=== PATIENT | female | born 1985 | race African-American/Black ===

== ENCOUNTER 2016-12-19 13:15 | Inpatient (IN) | payer MEDICAID, OTHER ==
[~2016-12-19] VITALS: Ht 160 cm; Wt 75.3 kg
[2016-12-19 13:46] LABS: BASOPHILS # (AUTO) 0.04 K/uL (0.00-0.20); BASOPHILS % (AUTO) 0.5 % (0.0-2.0); EOSINOPHILS # (AUTO) 0.03 K/uL (0.00-0.70); EOSINOPHILS % (AUTO) 0.35 % (1.0-6.0); HEMATOCRIT 34.4 % (36-46); HEMOGLOBIN 10.3 g/dL (12.0-16.0); LYMPHOCYTES # (AUTO) 1.3 K/uL (1.0-4.8); LYMPHOCYTES % (AUTO) 17.1 % (22.0-44.0); MEAN CORPUSCULAR HEMOGLOBIN 21.1 pg (26.0-34.0); MEAN CORPUSCULAR VOLUME 70 fL (80-100); MONOCYTES # (AUTO) 0.8 K/uL (0.1-1.0); NEUTROPHILS # (AUTO) 5.6 K/uL (1.8-7.7); NEUTROPHILS % (AUTO) 72.1 % (40.0-70.0); PLATELET COUNT (AUTO) 388 K/uL (150-450); RED CELL DISTRIBUTION WIDTH 24.9 % (11.5-14.5); WHITE BLOOD COUNT (AUTO) 7.8 K/uL (4.5-11.0)
[2016-12-19 13:55] LABS: ANION GAP 10 mmol/L (8-16); CALCIUM, TOTAL 9.5 mg/dL (8.8-10.5); CARBON DIOXIDE 27 mmol/L (22-29); CHLORIDE 103 mmol/L (98-107); CREATININE 0.74 mg/dL (0.60-1.30); GLOMERULAR FILTR. RATE CALC > 60 mL/min (>60); POTASSIUM 3.8 mmol/L (3.5-5.1); SODIUM SERUM 140 mmol/L (136-145); UREA NITROGEN, BLOOD 8 mg/dL (7-18)
[2016-12-19] MEDS ORDERED: DiphenhydrAMINE HCL 50 MG/ML VIAL ONE (14:25)
[2016-12-19] MEDS ORDERED: LORazepam 2 MG/ML VIAL ONE (14:25)
[2016-12-19] MEDS ORDERED: HALOPERIDOL LACTATE 5 MG/ML VIAL ONE (14:26)
[2016-12-19 14:35] LABS: ALANINE AMINOTRANSFERASE 40 U/L (12-78); ALBUMIN 4.2 g/dL (3.4-5.0); ASPARTATE AMINOTRANSFERASE 28 U/L (15-37); BILIRUBIN,TOTAL 0.5 mg/dL (0.1-1.0)
[2016-12-19 14:38] LABS: RBC MORPHOLOGY COMMENT ABNORMAL RBC MORPH
[2016-12-19] MEDS ORDERED: HALOPERIDOL 5 MG TABLET PO PRN (15:00)
[2016-12-19 15:55] LABS: ADD UA MICROSCOPIC YES; APPEARANCE,URINE CLOUDY (CLEAR); GLUCOSE, URINE (UA) NEGATIVE (NEGATIVE); KETONES,URINE 40 mg/dL (NEGATIVE); LEUKOCYTE ESTERASE ,URINE TRACE (NEGATIVE); OCCULT BLOOD,URINE NEGATIVE (NEGATIVE); PROTEIN,URINE TRACE (NEGATIVE)
[2016-12-19 15:57] LABS: RBC,URINE 0-2 /HPF (0-2)
[2016-12-19 15:58] LABS: SQUAMOUS EPITHELIAL CELL,UR Few /LPF (None Seen)
[2016-12-19 15:59] LABS: CHOL/HDL RATIO 3.5 (3.9-5.7)
[2016-12-19 19:31] VITALS: BP 137/86
[2016-12-19] MEDS ORDERED: PNEUMOCOCCAL VACCINE POLYVALENT 0.5 ML VIAL [PPSV23] IM ONE (20:00)
[2016-12-20 08:19] VITALS: BP 130/65
[2016-12-20] MEDS: RisperiDONE 2 MG TABLET PO SCH ×2 (08:31→17:00)
[2016-12-20] MEDS ORDERED: HALOPERIDOL LACTATE 5 MG/ML VIAL IM ONE (09:00)
[2016-12-20] MEDS ORDERED: LORazepam 2 MG/ML VIAL IM ONE (09:00)
[2016-12-20] MEDS ORDERED: DiphenhydrAMINE HCL 50 MG/ML VIAL IM ONE (09:00)
[2016-12-20 09:45] VITALS: BP 124/72
[2016-12-20 16:15] VITALS: BP 126/74
[2016-12-20] MEDS ORDERED: IBUPROFEN 400 MG TABLET PO PRN (21:45)
[2016-12-20] MEDS ORDERED: ACETAMINOPHEN 325 MG TABLET PO PRN (21:45)
[2016-12-21] MEDS: RisperiDONE 2 MG TABLET PO SCH ×2 (08:58→16:31)
[2016-12-21] MEDS ORDERED: LORazepam 2 MG/ML VIAL ONE (12:31)
[2016-12-21] MEDS ORDERED: HALOPERIDOL LACTATE 5 MG/ML VIAL ONE (12:31)
[2016-12-21] MEDS ORDERED: DiphenhydrAMINE HCL 50 MG/ML VIAL ONE (12:31)
[2016-12-21] MEDS ORDERED: DiphenhydrAMINE HCL 50 MG/ML VIAL IM ONE (12:45)
[2016-12-21] MEDS ORDERED: LORazepam 2 MG/ML VIAL IM ONE (12:45)
[2016-12-21] MEDS ORDERED: HALOPERIDOL LACTATE 5 MG/ML VIAL IM ONE (12:45)
[2016-12-21 16:02] VITALS: BP 123/77
[2016-12-21] MEDS ORDERED: *CLINICAL-RX DOSING [ENTER DRUG IN COMMENTS] CLINICAL ONE (17:30)
[2016-12-21] MEDS: ZOLPIDEM TARTRATE 10 MG TABLET PO PRN (21:05)
[2016-12-22] MEDS: LORazepam 2 MG TABLET PO PRN (08:01)
[2016-12-22] MEDS: DIVALPROEX SODIUM 500 MG DR TABLET PO SCH ×3 (08:01→17:15)
[2016-12-22] MEDS: RisperiDONE 3 MG TABLET PO SCH ×3 (08:01→17:15)
[2016-12-22] MEDS: LITHIUM CARBONATE 300 MG CAPSULE PO SCH ×3 (08:01→17:15)
[2016-12-22 08:39] VITALS: BP 128/83
[2016-12-22] MEDS ORDERED: DiphenhydrAMINE HCL 50 MG/ML VIAL IM ONE (09:15)
[2016-12-22] MEDS ORDERED: HALOPERIDOL LACTATE 5 MG/ML VIAL IM ONE (09:15)
[2016-12-22] MEDS ORDERED: LORazepam 2 MG/ML VIAL IM ONE (09:15)
[2016-12-22] MEDS ORDERED: IVERMECTIN 3 MG TABLET PO ONE (12:00)
[2016-12-22 16:07] VITALS: BP 117/67
[2016-12-22] MEDS: ZOLPIDEM TARTRATE 10 MG TABLET PO PRN (21:02)
[2016-12-23 00:25] VITALS: BP 112/66
[2016-12-23] MEDS: LORazepam 2 MG TABLET PO PRN (00:26)
[2016-12-23] MEDS: RisperiDONE 3 MG TABLET PO SCH ×2 (08:02→16:32)
[2016-12-23] MEDS: DIVALPROEX SODIUM 500 MG DR TABLET PO SCH ×2 (08:02→16:32)
[2016-12-23] MEDS: LITHIUM CARBONATE 300 MG CAPSULE PO SCH ×2 (08:02→16:32)
[2016-12-23 08:19] VITALS: BP 115/70
[2016-12-23 16:31] VITALS: BP 124/68
[2016-12-23] MEDS: ZOLPIDEM TARTRATE 10 MG TABLET PO PRN (20:50)
[2016-12-24 07:03] VITALS: BP 122/62
[2016-12-24 08:32] VITALS: BP 125/74
[2016-12-24] MEDS: LITHIUM CARBONATE 300 MG CAPSULE PO SCH ×2 (08:53→16:37)
[2016-12-24] MEDS: RisperiDONE 3 MG TABLET PO SCH ×2 (08:53→16:37)
[2016-12-24] MEDS: DIVALPROEX SODIUM 500 MG DR TABLET PO SCH ×2 (08:53→16:37)
[2016-12-24] MEDS: LORazepam 2 MG TABLET PO PRN ×2 (08:54→20:17)
[2016-12-24 16:00] VITALS: BP 118/69
[2016-12-25 06:50] VITALS: BP 119/78
[2016-12-25 08:25] VITALS: BP 114/62
[2016-12-25] MEDS: LITHIUM CARBONATE 300 MG CAPSULE PO SCH (08:46)
[2016-12-25] MEDS: DIVALPROEX SODIUM 500 MG DR TABLET PO SCH (08:46)
[2016-12-25] MEDS: RisperiDONE 3 MG TABLET PO SCH (08:47)
[2016-12-25] MEDS ORDERED: LITH300C3 PO (12:12)
[2016-12-25] MEDS ORDERED: RISP3 PO (12:12)
[2016-12-25] MEDS ORDERED: DIVA500T35 PO (12:12)
== END 2016-12-25 13:30 | disposition home or self-care (01) | DRG 750 ==
LOC: EEVIPCON 13:17 → EMS 13:17 → B3A 16:16
PROVIDERS: ADMIT Psychiatry & Neurology Psychiatry; ATTEND Psychiatry & Neurology Psychiatry
DX: F25.9 Schizoaffective disorder, unspecified (principal); Z78.1 Physical restraint status; Z91.14 Patient's other noncompliance with medication regimen; E78.5 Hyperlipidemia, unspecified; D64.9 Anemia, unspecified; F19.10 Other psychoactive substance abuse, uncomplicated; Z86.73 Personal history of transient ischemic attack (TIA), and cerebral infarction without residual deficits
CPT/HCPCS: 90471; 99285; G0480; J1200; J1630; J2060

== ENCOUNTER 2016-12-27 19:00 | Inpatient (IN) | payer MEDICAID, OTHER ==
[~2016-12-27] VITALS: Ht 160 cm; Wt 80.1 kg
[~2016-12-27 19:00] MED LIST: DIVA500T35 PO; LITH300C3 PO; RISP3 PO
[2016-12-27] MEDS ORDERED: DiphenhydrAMINE HCL 50 MG/ML VIAL IM ONE (19:30)
[2016-12-27] MEDS ORDERED: LORazepam 2 MG/ML VIAL IM ONE (19:30)
[2016-12-27] MEDS ORDERED: HALOPERIDOL LACTATE 5 MG/ML VIAL IM ONE (19:30)
[2016-12-27 19:32] LABS: GLUCOSE,POINT OF CARE 104 MG/DL (70-110)
[2016-12-27 20:17] LABS: BASOPHILS % (AUTO) 0.2 % (0.0-2.0); EOSINOPHILS % (AUTO) 0.6 % (1.0-6.0); HEMATOCRIT 34.1 % (36-46); HEMOGLOBIN 10.3 g/dL (12.0-16.0); LYMPHOCYTES # (AUTO) 1.8 K/uL (1.0-4.8); LYMPHOCYTES % (AUTO) 22.4 % (22.0-44.0); MEAN CORPUSCULAR HEMOGLOBIN 21.7 pg (26.0-34.0); MEAN CORPUSCULAR HGB CONC 30.2 G/dL (31.0-37.0); MEAN CORPUSCULAR VOLUME 72 fL (80-100); MONOCYTES # (AUTO) 0.7 K/uL (0.1-1.0); MONOCYTES % (AUTO) 8.9 % (2.0-9.0); NEUTROPHILS # (AUTO) 5.5 K/uL (1.8-7.7); NEUTROPHILS % (AUTO) 67.9 % (40.0-70.0); PLATELET COUNT (AUTO) 352 K/uL (150-450); RED BLOOD CELL COUNT(AUTO) 4.75 MIL/uL (4.00-5.20); RED CELL DISTRIBUTION WIDTH 26.8 % (11.5-14.5); WHITE BLOOD COUNT (AUTO) 8.2 K/uL (4.5-11.0)
[2016-12-27 20:24] LABS: ANION GAP 9 mmol/L (8-16); CALCIUM, TOTAL 8.8 mg/dL (8.8-10.5); CARBON DIOXIDE 28 mmol/L (22-29); CHLORIDE 103 mmol/L (98-107); GLOMERULAR FILTR. RATE CALC > 60 mL/min (>60); POTASSIUM 3.5 mmol/L (3.5-5.1); SODIUM SERUM 140 mmol/L (136-145); UREA NITROGEN, BLOOD 6 mg/dL (7-18)
[2016-12-27 20:29] LABS: ALANINE AMINOTRANSFERASE 23 U/L (12-78); ALBUMIN 3.6 g/dL (3.4-5.0); ASPARTATE AMINOTRANSFERASE 12 U/L (15-37); BILIRUBIN,TOTAL 0.2 mg/dL (0.1-1.0); VALPROIC ACID 54 mcg/mL (50-100)
[2016-12-27 20:32] LABS: LITHIUM 0.24 mmol/L (0.60-1.20)
[2016-12-27 20:44] LABS: RBC MORPHOLOGY COMMENT ABNORMAL RBC MORPH
[2016-12-27] MEDS ORDERED: HALOPERIDOL 5 MG TABLET PO PRN (20:45)
[2016-12-27 22:42] VITALS: BP 154/86
[2016-12-28 08:36] VITALS: BP 124/69
[2016-12-28] MEDS: LORazepam 2 MG TABLET PO PRN (14:10)
[2016-12-28 16:00] VITALS: BP 118/61
[2016-12-28] MEDS: DIVALPROEX SODIUM 500 MG DR TABLET PO SCH (17:01)
[2016-12-28] MEDS: LITHIUM CARBONATE 300 MG CAPSULE PO SCH (17:01)
[2016-12-28] MEDS: RisperiDONE 3 MG TABLET PO SCH (17:01)
[2016-12-28] MEDS ORDERED: IBUPROFEN 400 MG TABLET PO PRN (20:45)
[2016-12-28] MEDS ORDERED: ACETAMINOPHEN 325 MG TABLET PO PRN (20:45)
[2016-12-29] MEDS: FERROUS SULFATE 325 MG EC TABLET PO SCH ×3 (06:43→16:17)
[2016-12-29 06:47] VITALS: BP 121/73
[2016-12-29] MEDS: RisperiDONE 3 MG TABLET PO SCH ×2 (08:42→16:17)
[2016-12-29] MEDS: LITHIUM CARBONATE 300 MG CAPSULE PO SCH ×2 (08:42→16:17)
[2016-12-29] MEDS: DIVALPROEX SODIUM 500 MG DR TABLET PO SCH ×2 (08:42→16:17)
[2016-12-29] MEDS: LORazepam 2 MG TABLET PO PRN (08:42)
[2016-12-29 09:03] LABS: BASOPHILS % (AUTO) 0.7 % (0.0-2.0); EOSINOPHILS % (AUTO) 0.8 % (1.0-6.0); HEMATOCRIT 34.3 % (36-46); HEMOGLOBIN 10.4 g/dL (12.0-16.0); LYMPHOCYTES # (AUTO) 1.6 K/uL (1.0-4.8); MEAN CORPUSCULAR HEMOGLOBIN 21.9 pg (26.0-34.0); MEAN CORPUSCULAR HGB CONC 30.3 G/dL (31.0-37.0); MEAN CORPUSCULAR VOLUME 72 fL (80-100); MONOCYTES # (AUTO) 0.4 K/uL (0.1-1.0); MONOCYTES % (AUTO) 7.6 % (2.0-9.0); NEUTROPHILS # (AUTO) 3.5 K/uL (1.8-7.7); NEUTROPHILS % (AUTO) 61.9 % (40.0-70.0); PLATELET COUNT (AUTO) 327 K/uL (150-450); RED BLOOD CELL COUNT(AUTO) 4.76 MIL/uL (4.00-5.20); WHITE BLOOD COUNT (AUTO) 5.6 K/uL (4.5-11.0)
[2016-12-29 09:08] LABS: HEMOGLOBIN A1C 4.6 % (4.5-6.2)
[2016-12-29 09:19] LABS: ALANINE AMINOTRANSFERASE 22 U/L (12-78); ALBUMIN 3.5 g/dL (3.4-5.0); ANION GAP 10 mmol/L (8-16); ASPARTATE AMINOTRANSFERASE 12 U/L (15-37); BILIRUBIN,TOTAL 0.2 mg/dL (0.1-1.0); CARBON DIOXIDE 25 mmol/L (22-29); CHLORIDE 104 mmol/L (98-107); CHOL/HDL RATIO 2.9 (3.9-5.7); CREATININE 0.65 mg/dL (0.60-1.30); GLOMERULAR FILTR. RATE CALC > 60 mL/min (>60); POTASSIUM 3.5 mmol/L (3.5-5.1); SODIUM SERUM 139 mmol/L (136-145); THYROID STIMULATING HORMONE 1.15 uIU/mL (0.36-3.74); UREA NITROGEN, BLOOD 10 mg/dL (7-18)
[2016-12-29 10:11] LABS: RBC MORPHOLOGY COMMENT DIMORPHIC RBC
[2016-12-29 16:00] VITALS: BP 114/64
[2016-12-29] MEDS: ZOLPIDEM TARTRATE 10 MG TABLET PO PRN (21:01)
[2016-12-30 06:16] VITALS: BP 113/77
[2016-12-30] MEDS: FERROUS SULFATE 325 MG EC TABLET PO SCH ×3 (06:21→17:05)
[2016-12-30] MEDS: DIVALPROEX SODIUM 500 MG DR TABLET PO SCH ×2 (08:16→16:20)
[2016-12-30] MEDS: LORazepam 2 MG TABLET PO PRN ×2 (08:16→16:20)
[2016-12-30] MEDS: LITHIUM CARBONATE 300 MG CAPSULE PO SCH ×2 (08:16→16:20)
[2016-12-30] MEDS: RisperiDONE 3 MG TABLET PO SCH ×2 (08:16→16:20)
[2016-12-30 08:43] VITALS: BP 115/69
[2016-12-30 16:27] VITALS: BP 126/72
[2016-12-30] MEDS: ZOLPIDEM TARTRATE 10 MG TABLET PO PRN (21:08)
[2016-12-31 05:32] VITALS: BP 101/62
[2016-12-31] MEDS: FERROUS SULFATE 325 MG EC TABLET PO SCH ×3 (06:45→16:49)
[2016-12-31] MEDS: DIVALPROEX SODIUM 500 MG DR TABLET PO SCH ×2 (08:04→16:49)
[2016-12-31] MEDS: LITHIUM CARBONATE 300 MG CAPSULE PO SCH ×2 (08:04→16:49)
[2016-12-31] MEDS: RisperiDONE 3 MG TABLET PO SCH ×2 (08:05→16:49)
[2016-12-31 08:34] VITALS: BP 120/68
[2016-12-31] MEDS: LORazepam 2 MG TABLET PO PRN ×2 (08:53→16:49)
[2016-12-31 16:00] VITALS: BP 115/68
[2016-12-31] MEDS: ZOLPIDEM TARTRATE 10 MG TABLET PO PRN (21:08)
[2017-01-01 06:18] VITALS: BP 117/69
[2017-01-01] MEDS: FERROUS SULFATE 325 MG EC TABLET PO SCH ×3 (06:28→16:55)
[2017-01-01 09:02] VITALS: BP 130/72
[2017-01-01] MEDS: DIVALPROEX SODIUM 500 MG DR TABLET PO SCH ×2 (09:24→16:24)
[2017-01-01] MEDS: RisperiDONE 3 MG TABLET PO SCH ×2 (09:24→16:24)
[2017-01-01] MEDS: LITHIUM CARBONATE 300 MG CAPSULE PO SCH ×2 (09:24→16:24)
[2017-01-01] MEDS: LORazepam 2 MG TABLET PO PRN ×2 (09:26→16:24)
[2017-01-01 16:16] VITALS: BP 128/72
[2017-01-01] MEDS: ZOLPIDEM TARTRATE 10 MG TABLET PO PRN (21:07)
[2017-01-02] MEDS: FERROUS SULFATE 325 MG EC TABLET PO SCH ×2 (06:23→12:39)
[2017-01-02 06:35] VITALS: BP 117/71
[2017-01-02 08:19] VITALS: BP 124/64
[2017-01-02] MEDS: DIVALPROEX SODIUM 500 MG DR TABLET PO SCH (08:26)
[2017-01-02] MEDS: LITHIUM CARBONATE 300 MG CAPSULE PO SCH (08:26)
[2017-01-02] MEDS: RisperiDONE 3 MG TABLET PO SCH (08:26)
[2017-01-02] MEDS: LORazepam 2 MG TABLET PO PRN (09:20)
[2017-01-02] MEDS ORDERED: FERR-89 PO (14:17)
== END 2017-01-02 15:55 | disposition home or self-care (01) | DRG 750 ==
LOC: EEVIPCON 19:01 → EMS 19:01 → B3A 20:01
PROVIDERS: ADMIT Psychiatry & Neurology Psychiatry; ATTEND Psychiatry & Neurology Psychiatry
DX: F25.1 Schizoaffective disorder, depressive type (principal); G93.41 Metabolic encephalopathy; Z91.14 Patient's other noncompliance with medication regimen; Z78.1 Physical restraint status; E78.5 Hyperlipidemia, unspecified; D64.9 Anemia, unspecified; Z86.73 Personal history of transient ischemic attack (TIA), and cerebral infarction without residual deficits; F19.21 Other psychoactive substance dependence, in remission; G80.9 Cerebral palsy, unspecified
CPT/HCPCS: 82962; 83036; 84443; 87081; 96372; 99285; G0480; J1200; J1630; J2060

== ENCOUNTER 2018-05-29 14:56 | Emergency (ER) | payer MEDICAID, OTHER ==
[~2018-05-29] VITALS: Ht 160 cm; Wt 109.1 kg
[~2018-05-29 14:56] MED LIST changes: +DIVA-78 PO; -DIVA500T35 PO; +FERR-89 PO
[2018-05-29 15:19] LABS: GLUCOSE,POINT OF CARE 187 MG/DL (70-110)
[2018-05-29] MEDS ORDERED: SODIUM CHLORIDE 0.9% 1,000 ML IV ONE ×2 (15:30→16:30)
[2018-05-29 15:56] LABS: BASOPHILS % (AUTO) 0.2 % (0.0-2.0); EOSINOPHILS % (AUTO) 0.4 % (1.0-6.0); HEMATOCRIT 29.5 % (36-46); HEMOGLOBIN 8.8 g/dL (12.0-16.0); LYMPHOCYTES # (AUTO) 1.5 K/uL (1.0-4.8); LYMPHOCYTES % (AUTO) 12.2 % (22.0-44.0); MEAN CORPUSCULAR HEMOGLOBIN 18.9 pg (26.0-34.0); MEAN CORPUSCULAR HGB CONC 29.7 G/dL (31.0-37.0); MEAN CORPUSCULAR VOLUME 64 fL (80-100); MONOCYTES # (AUTO) 0.7 K/uL (0.1-1.0); MONOCYTES % (AUTO) 5.4 % (2.0-9.0); NEUTROPHILS # (AUTO) 10.4 K/uL (1.8-7.7); NEUTROPHILS % (AUTO) 81.8 % (40.0-70.0); PLATELET COUNT (AUTO) 337 K/uL (150-450); RED BLOOD CELL COUNT(AUTO) 4.64 MIL/uL (4.00-5.20); RED CELL DISTRIBUTION WIDTH 18.6 % (11.5-14.5)
[2018-05-29 16:02] LABS: ANION GAP 6 mmol/L (8-16); CALCIUM, TOTAL 7.8 mg/dL (8.8-10.5); CARBON DIOXIDE 27 mmol/L (22-29); CHLORIDE 104 mmol/L (98-107); CREATININE 0.75 mg/dL (0.60-1.30); GLOMERULAR FILTR. RATE CALC > 60 mL/min (>60); GLUCOSE,RANDOM 151 mg/dL (70-110); POTASSIUM 3.4 mmol/L (3.5-5.1); SODIUM SERUM 137 mmol/L (136-145); UREA NITROGEN, BLOOD 6 mg/dL (7-18)
[2018-05-29 16:07] LABS: VALPROIC ACID < 3 mcg/mL (50-100)
[2018-05-29 16:13] LABS: ALANINE AMINOTRANSFERASE 19 U/L (12-78); ALBUMIN 2.6 g/dL (3.4-5.0); ALKALINE PHOSPHATASE 65 U/L (46-116); ASPARTATE AMINOTRANSFERASE 16 U/L (15-37); BILIRUBIN,TOTAL 0.2 mg/dL (0.1-1.0); HCG,QUANTITATIVE < 1 mIU/mL (0-6); TOTAL PROTEIN, SERUM 5.7 g/dL (6.4-8.2)
[2018-05-29 16:21] LABS: LITHIUM < 0.20 mmol/L (0.60-1.20)
[2018-05-29] MEDS ORDERED: ACETAMINOPHEN 500 MG TABLET PO ONE (17:00)
[2018-05-29] MEDS ORDERED: POTASSIUM CHLORIDE 20 MEQ ER TABLET PO ONE (18:00)
[2018-05-29 18:12] VITALS: BP 107/50
== END 2018-05-29 18:20 | disposition home or self-care (01) ==
LOC: EMS 14:58
DX: R42 Dizziness and giddiness (principal); D64.9 Anemia, unspecified; F17.210 Nicotine dependence, cigarettes, uncomplicated; Z86.2 Personal history of diseases of the blood and blood-forming organs and certain disorders involving the immune mechanism
CPT/HCPCS: 36415; 80053; 80164; 80178; 82962; 84702; 85025; 96360; 99284; 99406; J7030

== ENCOUNTER 2018-06-01 17:32 | Emergency (ER) | payer OTHER ==
[~2018-06-01] VITALS: Ht 160 cm; Wt 109.1 kg
[2018-06-01] MEDS ORDERED: LURA20TA PO (17:38)
[2018-06-01] MEDS ORDERED: KETOROLAC TROMETHAMINE 30 MG/ML VIAL IM ONE (19:30)
[2018-06-01] MEDS ORDERED: ACETAMINOPHEN 500 MG TABLET PO ONE (19:30)
[2018-06-01] MEDS ORDERED: MAALOX/LIDOCAINE/NYSTATIN SUSP 5 ML ORAL.SYG MM ONE (19:30)
[2018-06-01 19:57] LABS: RAPID GROUP A STREP NEGATIVE (NEGATIVE)
[2018-06-01 20:06] LABS: INFLUENZA TYPE A NEGATIVE FOR TYPE A (NEGATIVE); INFLUENZA TYPE B NEGATIVE FOR TYPE B (NEGATIVE)
[2018-06-01 20:17] VITALS: BP 130/72
[2018-06-01] MEDS ORDERED: AMOXICILLIN TRIHYDRATE 250 MG CAPSULE PO ONE (20:45)
== END 2018-06-01 20:57 | disposition home or self-care (01) ==
LOC: EMS 17:33
DX: J02.9 Acute pharyngitis, unspecified (principal); R51 Headache; F17.210 Nicotine dependence, cigarettes, uncomplicated; F32.9 Major depressive disorder, single episode, unspecified; Z86.79 Personal history of other diseases of the circulatory system; Z79.899 Other long term (current) drug therapy
CPT/HCPCS: 87430; 87804; 96372; 99284; 99406; J1885

== ENCOUNTER 2018-08-09 13:04 | Emergency (ER) | payer OTHER ==
[~2018-08-09] VITALS: Ht 160 cm; Wt 107.7 kg
[~2018-08-09 13:04] MED LIST changes: -DIVA-78 PO; -FERR-89 PO; -LITH300C3 PO; +LURA20TA PO; -RISP3 PO
[2018-08-09 13:15] VITALS: BP 130/90
== END 2018-08-09 15:23 | disposition home or self-care (01) ==
LOC: EMS 13:05
DX: B35.0 Tinea barbae and tinea capitis (principal); L30.9 Dermatitis, unspecified; F17.210 Nicotine dependence, cigarettes, uncomplicated

== ENCOUNTER 2018-08-11 14:39 | Emergency (ER) | payer OTHER ==
[~2018-08-11] VITALS: Ht 160 cm; Wt 104.5 kg
[2018-08-11] MEDS ORDERED: ARIP2 PO (15:20)
[2018-08-11 18:00] LABS: BASOPHILS % (AUTO) 1.4 % (0.0-2.0); EOSINOPHILS % (AUTO) 0.8 % (1.0-6.0); HEMATOCRIT 31.5 % (36-46); HEMOGLOBIN 9.3 g/dL (12.0-16.0); LYMPHOCYTES # (AUTO) 2.3 K/uL (1.0-4.8); MEAN CORPUSCULAR HEMOGLOBIN 18.7 pg (26.0-34.0); MEAN CORPUSCULAR HGB CONC 29.4 G/dL (31.0-37.0); MEAN CORPUSCULAR VOLUME 64 fL (80-100); MONOCYTES % (AUTO) 6.7 % (2.0-9.0); NEUTROPHILS # (AUTO) 10.9 K/uL (1.8-7.7); NEUTROPHILS % (AUTO) 75.1 % (40.0-70.0); PLATELET COUNT (AUTO) 453 K/uL (150-450); RED BLOOD CELL COUNT(AUTO) 4.95 MIL/uL (4.00-5.20); RED CELL DISTRIBUTION WIDTH 18.9 % (11.5-14.5)
[2018-08-11] MEDS ORDERED: LORazepam 1 MG TABLET PO ONE (18:00)
[2018-08-11] MEDS ORDERED: ARIPiprazole 5 MG TABLET PO ONE (18:00)
[2018-08-11 18:02] VITALS: BP 135/64
[2018-08-11 18:03] LABS: ANION GAP 7 mmol/L (8-16); CALCIUM, TOTAL 8.4 mg/dL (8.8-10.5); CARBON DIOXIDE 28 mmol/L (22-29); CHLORIDE 103 mmol/L (98-107); CREATININE 0.63 mg/dL (0.60-1.30); GLOMERULAR FILTR. RATE CALC > 60 mL/min (>60); GLUCOSE,RANDOM 94 mg/dL (70-110); POTASSIUM 4.3 mmol/L (3.5-5.1); SODIUM SERUM 138 mmol/L (136-145); UREA NITROGEN, BLOOD 7 mg/dL (7-18)
[2018-08-11 18:09] LABS: ALANINE AMINOTRANSFERASE 32 U/L (12-78); ALBUMIN 3.1 g/dL (3.4-5.0); ALKALINE PHOSPHATASE 85 U/L (46-116); ASPARTATE AMINOTRANSFERASE 27 U/L (15-37); BILIRUBIN,TOTAL 0.2 mg/dL (0.1-1.0); TOTAL PROTEIN, SERUM 6.6 g/dL (6.4-8.2)
== END 2018-08-11 18:13 | disposition home or self-care (01) ==
LOC: EMS 14:39
DX: F41.0 Panic disorder [episodic paroxysmal anxiety] (principal); F22 Delusional disorders; F32.9 Major depressive disorder, single episode, unspecified; F17.210 Nicotine dependence, cigarettes, uncomplicated
CPT/HCPCS: 36415; 80053; 85025; 93005; 99284; G0480

== ENCOUNTER 2018-08-20 17:25 | Emergency (ER) | payer OTHER ==
[~2018-08-20] VITALS: Ht 160 cm; Wt 109.1 kg
[~2018-08-20 17:25] MED LIST changes: +ARIP2 PO; -LURA20TA PO
[2018-08-20] MEDS ORDERED: CEPHALEXIN MONOHYDRATE 500 MG CAPSULE PO ONE (20:00)
[2018-08-20] MEDS ORDERED: HydrOXYzine HCL 50 MG TABLET PO ONE (20:00)
[2018-08-20 20:25] VITALS: BP 127/74
== END 2018-08-20 20:38 | disposition home or self-care (01) ==
LOC: EMS 17:26
DX: B35.0 Tinea barbae and tinea capitis (principal); L73.9 Follicular disorder, unspecified; F17.210 Nicotine dependence, cigarettes, uncomplicated; F20.9 Schizophrenia, unspecified; F32.9 Major depressive disorder, single episode, unspecified

== ENCOUNTER 2018-09-26 12:21 | Emergency (ER) | payer OTHER ==
[~2018-09-26] VITALS: Ht 160 cm; Wt 106.8 kg
[2018-09-26] MEDS ORDERED: RISP3 PO (12:35)
[2018-09-26] MEDS ORDERED: VENL25TA47 PO (12:37)
[2018-09-26] MEDS ORDERED: ANXIETY PO (12:37)
[2018-09-26 15:36] VITALS: BP 115/69
== END 2018-09-26 15:37 | disposition home or self-care (01) ==
LOC: EMS 12:22
DX: F41.9 Anxiety disorder, unspecified (principal); F25.9 Schizoaffective disorder, unspecified; R06.02 Shortness of breath; F32.9 Major depressive disorder, single episode, unspecified; F17.210 Nicotine dependence, cigarettes, uncomplicated; Z86.73 Personal history of transient ischemic attack (TIA), and cerebral infarction without residual deficits

== ENCOUNTER 2019-06-08 00:57 | Emergency (ER) | payer OTHER ==
[~2019-06-08] VITALS: Ht 160 cm; Wt 113.6 kg
[~2019-06-08 00:57] MED LIST changes: +ANXIETY PO; -ARIP2 PO; +RISP3 PO
[2019-06-08] MEDS ORDERED: OLAN5TAB2 PO (01:08)
[2019-06-08] MEDS ORDERED: KETOROLAC TROMETHAMINE 30 MG/ML VIAL IM ONE (02:45)
[2019-06-08] MEDS ORDERED: TraMADol HCL 50 MG TABLET PO ONE (02:45)
[2019-06-08 03:30] VITALS: BP 135/77
== END 2019-06-08 03:40 | disposition home or self-care (01) ==
LOC: EMS 00:59
DX: K08.89 Other specified disorders of teeth and supporting structures (principal); F20.9 Schizophrenia, unspecified; F32.9 Major depressive disorder, single episode, unspecified; F17.210 Nicotine dependence, cigarettes, uncomplicated; Z86.73 Personal history of transient ischemic attack (TIA), and cerebral infarction without residual deficits; Z79.899 Other long term (current) drug therapy; Z98.890 Other specified postprocedural states
CPT/HCPCS: 96372; 99283; J1885

== ENCOUNTER 2019-07-03 08:50 | Emergency (ER) | payer OTHER ==
[~2019-07-03] VITALS: Ht 160 cm; Wt 113.6 kg
[~2019-07-03 08:50] MED LIST changes: -ANXIETY PO; +OLAN5TAB2 PO; -RISP3 PO
[2019-07-03] MEDS ORDERED: LORazepam 1 MG TABLET PO ONE (09:30)
[2019-07-03] MEDS ORDERED: OLANZapine 5 MG TABLET PO ONE (09:30)
[2019-07-03 10:22] VITALS: BP 111/62
== END 2019-07-03 11:10 | disposition home or self-care (01) ==
LOC: EMS 08:51
DX: F41.9 Anxiety disorder, unspecified (principal); F32.9 Major depressive disorder, single episode, unspecified; F20.9 Schizophrenia, unspecified; F17.210 Nicotine dependence, cigarettes, uncomplicated; Z86.73 Personal history of transient ischemic attack (TIA), and cerebral infarction without residual deficits; Z79.899 Other long term (current) drug therapy
CPT/HCPCS: 93005

== ENCOUNTER 2019-08-08 14:13 | Emergency (ER) | payer OTHER ==
[~2019-08-08] VITALS: Ht 160 cm; Wt 109.1 kg
[2019-08-08 16:53] LABS: EOSINOPHILS % (AUTO) 0.5 % (1.0-6.0); HEMATOCRIT 35.3 % (36-46); HEMOGLOBIN 10.9 g/dL (12.0-16.0); LYMPHOCYTES # (AUTO) 2.3 K/uL (1.0-4.8); LYMPHOCYTES % (AUTO) 28.4 % (22.0-44.0); MEAN CORPUSCULAR HEMOGLOBIN 21.8 pg (26.0-34.0); MEAN CORPUSCULAR HGB CONC 30.7 G/dL (31.0-37.0); MEAN CORPUSCULAR VOLUME 71 fL (80-100); MONOCYTES # (AUTO) 0.6 K/uL (0.1-1.0); MONOCYTES % (AUTO) 7.2 % (2.0-9.0); NEUTROPHILS # (AUTO) 5.1 K/uL (1.8-7.7); NEUTROPHILS % (AUTO) 62.9 % (40.0-70.0); PLATELET COUNT (AUTO) 366 K/uL (150-450); RED BLOOD CELL COUNT(AUTO) 4.97 MIL/uL (4.00-5.20); RED CELL DISTRIBUTION WIDTH 18.1 % (11.5-14.5)
[2019-08-08 17:05] LABS: ANION GAP 10 mmol/L (8-16); CALCIUM, TOTAL 8.7 mg/dL (8.8-10.5); CARBON DIOXIDE 27 mmol/L (22-29); CHLORIDE 104 mmol/L (98-107); CREATININE 0.57 mg/dL (0.60-1.30); GLOMERULAR FILTR. RATE CALC > 60 mL/min (>60); GLUCOSE,RANDOM 155 mg/dL (70-110); POTASSIUM 3.5 mmol/L (3.5-5.1); SODIUM SERUM 141 mmol/L (136-145); UREA NITROGEN, BLOOD 6 mg/dL (7-18)
[2019-08-08 17:19] LABS: ALANINE AMINOTRANSFERASE 53 U/L (12-78); ALBUMIN 3.7 g/dL (3.4-5.0); ALKALINE PHOSPHATASE 94 U/L (46-116); ASPARTATE AMINOTRANSFERASE 33 U/L (15-37); BILIRUBIN,TOTAL 0.3 mg/dL (0.1-1.0); HCG,QUANTITATIVE 2 mIU/mL (0-6); TOTAL PROTEIN, SERUM 7.4 g/dL (6.4-8.2)
[2019-08-08] MEDS ORDERED: SODIUM CHLORIDE 0.9% 1,000 ML IV ONE (18:15)
[2019-08-08] MEDS ORDERED: ACETAMINOPHEN 500 MG TABLET PO ONE (18:15)
[2019-08-08] MEDS ORDERED: ALPRAZolam 0.5 MG TABLET PO ONE (18:30)
[2019-08-08 18:32] LABS: B-TYPE NATRIURETIC PEPTIDE < 5 pg/mL (0-100)
[2019-08-08 18:43] LABS: CREATINE KINASE, TOTAL ONLY 262 U/L (26-192)
[2019-08-08 19:10] LABS: APPEARANCE,URINE CLOUDY (CLEAR); GLUCOSE, URINE (UA) NEGATIVE (NEGATIVE); KETONES,URINE 15 mg/dL (NEGATIVE); LEUKOCYTE ESTERASE ,URINE NEGATIVE (NEGATIVE); NITRATE,URINE NEGATIVE (NEGATIVE); OCCULT BLOOD,URINE NEGATIVE (NEGATIVE); PROTEIN,URINE TRACE (NEGATIVE)
[2019-08-08 19:15] LABS: AMPHET/METH SCREEN,URINE POSITIVE (NEGATIVE); BARBITURATE SCREEN, URINE NEGATIVE (NEGATIVE); BENZODIAZEPINES SCREEN,URINE NEGATIVE (NEGATIVE); CANNABINOID SCREEN,URINE POSITIVE (NEGATIVE); COCAINE SCREEN,URINE NEGATIVE (NEGATIVE); METHADONE SCREEN, URINE NEGATIVE (NEGATIVE); OPIATE SCREEN,URINE NEGATIVE (NEGATIVE)
[2019-08-08 19:23] LABS: PHENCYCLIDINE SCREEN,URINE NEGATIVE (NEGATIVE)
[2019-08-08 19:24] LABS: BILIRUBIN,URINE PRELIM. POSITIVE (NEGATIVE)
[2019-08-08 20:13] LABS: PLATELET MORPHOLOGY COMMENT GIANT PLTS PRESENT
[2019-08-08 20:35] VITALS: BP 144/91
== END 2019-08-08 20:38 | disposition home or self-care (01) ==
LOC: EMS 14:15
DX: F41.9 Anxiety disorder, unspecified (principal); R06.02 Shortness of breath; R05 Cough; F32.9 Major depressive disorder, single episode, unspecified; F20.9 Schizophrenia, unspecified; F17.210 Nicotine dependence, cigarettes, uncomplicated; Z86.73 Personal history of transient ischemic attack (TIA), and cerebral infarction without residual deficits; Z79.899 Other long term (current) drug therapy
CPT/HCPCS: 36415; 71046; 80053; 80307; 81003; 82550; 83880; 84484; 84702; 85025; 87430; 93005; 99285; 99406; G0480; J7030

== ENCOUNTER 2019-08-30 07:39 | Emergency (ER) | payer OTHER ==
[~2019-08-30] VITALS: Ht 160 cm; Wt 100.0 kg
[2019-08-30] MEDS ORDERED: LORazepam 2 MG TABLET PO ONE (08:30)
[2019-08-30 10:20] VITALS: BP 118/71
== END 2019-08-30 10:41 | disposition home or self-care (01) ==
LOC: EMS 07:40
DX: F20.9 Schizophrenia, unspecified (principal); F41.9 Anxiety disorder, unspecified; G47.00 Insomnia, unspecified; F10.10 Alcohol abuse, uncomplicated; F32.9 Major depressive disorder, single episode, unspecified; F17.210 Nicotine dependence, cigarettes, uncomplicated; Z86.73 Personal history of transient ischemic attack (TIA), and cerebral infarction without residual deficits; Z79.899 Other long term (current) drug therapy; Z98.890 Other specified postprocedural states

== ENCOUNTER 2019-10-10 11:29 | Emergency (ER) | payer OTHER ==
[~2019-10-10] VITALS: Ht 170.2 cm; Wt 113.6 kg
[2019-10-10 11:50] LABS: BASOPHILS % (AUTO) 0.5 % (0.0-2.0); EOSINOPHILS % (AUTO) 0.3 % (1.0-6.0); HEMATOCRIT 36.4 % (36-46); HEMOGLOBIN 11.1 g/dL (12.0-16.0); MEAN CORPUSCULAR HGB CONC 30.5 G/dL (31.0-37.0); MEAN CORPUSCULAR VOLUME 72 fL (80-100); MONOCYTES # (AUTO) 0.7 K/uL (0.1-1.0); MONOCYTES % (AUTO) 5.4 % (2.0-9.0); NEUTROPHILS # (AUTO) 10.7 K/uL (1.8-7.7); NEUTROPHILS % (AUTO) 78.8 % (40.0-70.0); PLATELET COUNT (AUTO) 412 K/uL (150-450); RED BLOOD CELL COUNT(AUTO) 5.05 MIL/uL (4.00-5.20); RED CELL DISTRIBUTION WIDTH 18.1 % (11.5-14.5)
[2019-10-10 12:11] LABS: ANION GAP 9 mmol/L (8-16); CALCIUM, TOTAL 8.8 mg/dL (8.8-10.5); CARBON DIOXIDE 26 mmol/L (22-29); CHLORIDE 104 mmol/L (98-107); GLOMERULAR FILTR. RATE CALC > 60 mL/min (>60); GLUCOSE,RANDOM 109 mg/dL (70-110); POTASSIUM 3.4 mmol/L (3.5-5.1); SODIUM SERUM 139 mmol/L (136-145); UREA NITROGEN, BLOOD 5 mg/dL (7-18)
[2019-10-10 12:15] LABS: ALANINE AMINOTRANSFERASE 47 U/L (12-78); ALBUMIN 3.7 g/dL (3.4-5.0); ALKALINE PHOSPHATASE 89 U/L (46-116); ASPARTATE AMINOTRANSFERASE 28 U/L (15-37); BILIRUBIN,TOTAL 0.4 mg/dL (0.1-1.0); TOTAL PROTEIN, SERUM 7.6 g/dL (6.4-8.2)
[2019-10-10] MEDS ORDERED: SODIUM CHLORIDE 0.9% 100 ML ONE (14:09)
[2019-10-10] MEDS ORDERED: IOVERSOL 350 MG/ML 100 ML VIAL ONE (14:09)
[2019-10-10] MEDS ORDERED: SODIUM CHLORIDE 0.9% 1,000 ML IV ONE (14:15)
[2019-10-10] MEDS ORDERED: KETOROLAC TROMETHAMINE 30 MG/ML VIAL IVP ONE (16:15)
[2019-10-10 16:51] LABS: HCG,QUANTITATIVE < 1 mIU/mL (0-6)
[2019-10-10] MEDS ORDERED: CefTRIAXone SODIUM 1 GM/VIAL IM ONE (19:00)
[2019-10-10] MEDS ORDERED: LIDOCAINE/PF 1% 2 ML VIAL IM ONE (19:00)
[2019-10-10] MEDS ORDERED: ACETAMINOPHEN 500 MG TABLET PO ONE (19:15)
[2019-10-10] MEDS ORDERED: CefTRIAXone 1 GM/DEXTROSE 50 ML IV ONE (19:15)
[2019-10-10 20:00] VITALS: BP 123/71
== END 2019-10-10 20:14 | disposition home or self-care (01) ==
LOC: EMS 11:30
DX: J20.9 Acute bronchitis, unspecified (principal); R07.89 Other chest pain; E11.9 Type 2 diabetes mellitus without complications; F41.9 Anxiety disorder, unspecified; F20.9 Schizophrenia, unspecified; F17.210 Nicotine dependence, cigarettes, uncomplicated; Z79.899 Other long term (current) drug therapy; Z86.73 Personal history of transient ischemic attack (TIA), and cerebral infarction without residual deficits
CPT/HCPCS: 36415; 71045; 71275; 80053; 84484; 84702; 85025; 93005; 96365; 96375; 99285; J1885; J7050; Q9967